=== PATIENT | male | born 1975 ===

== ENCOUNTER 2018-06-01 12:03 | Inpatient (IN) ==
[2018-06-01] MEDS ORDERED: GLUCAGON 1 MG VIAL IM PRN (16:29)
[2018-06-01] MEDS: INSULIN REGULAR 100 UNIT/ML SUBCUT SCH ×2 (16:50→21:37)
[2018-06-01] MEDS: SODIUM CHLORIDE 0.9% 1,000 ML IV SCH (16:53)
[2018-06-01] MEDS: DOCUSATE SODIUM 100 MG CAPSULE PO PRN (16:53)
[2018-06-01] MEDS: ONDANSETRON 4 MG/2 ML VIAL IV PRN (16:55)
[2018-06-01] MEDS ORDERED: metFORMIN 500 MG TABLET PO SCH (17:00)
[2018-06-01] MEDS ORDERED: VANCOMYCIN INJ 2,500 MG in SODIUM CHLORIDE 0.9% 500 ML IV ONE (18:00)
[2018-06-01 18:06] LABS: Basophils % 0.2 % (0.0-0.8); Eosinophils % 31.1 % (0.00-10.9); Hematocrit 32.6 VOL% (42.0-52.0); Hemoglobin 11.4 GM/DL (14.0-18.0); Immature Granulocytes % 2.1 %; Lymphocytes # 0.3 10*3/uL (1.4-4.0); Lymphocytes % 2.9 % (21.2-54.2); Mean Corpuscular Hemoglobin 34 PG (27-34); Mean Platelet Volume 11.3 FL (9.6-12.0); Monocytes # 0.6 10*3/uL (0.11-0.8); Monocytes % 5.6 % (1.7-12.7); Neutrophils # 5.7 10*3/uL (1.4-7.4); Neutrophils % 58.1 % (38.7-73.9); Red Blood Count 3.36 MC/CUMM (3.8-5.5); White Blood Count 9.8 T/CUMM (4-12)
[2018-06-01 18:09] LABS: Platelet Count 32 T/CUMM (130-400)
[2018-06-01 18:24] LABS: Calcium 7.2 MG/DL (8.5-10.1); Osmolality,Calculated 271.2 MOS/KG (273-304); Potassium 3.9 MMOL/L (3.5-5.1)
[2018-06-01] MEDS: DEXTROSE 50% 25 GM/50 ML VIAL IV PRN (19:10)
[2018-06-01 19:56] LABS: Band Neutrophils 3 % (0-10); Eosinophils 17 % (0-10); Lymphocytes 4 % (20-55); Platelet Estimate Decreased; Segmented Neutrophils 72 % (50-85); Total Cells Counted 100
[2018-06-01] MEDS ORDERED: ENOXAPARIN 30 MG/0.3 ML SYRINGE SUBCUT SCH (21:00)
[2018-06-01] MEDS: MORPHINE 4 MG/1 ML VIAL IV PRN (21:33)
[2018-06-01] MEDS: PIPERACILLIN/TAZOBACTAM 3,375 MG in SODIUM CHLORIDE 0.9% 100 ML IV SCH (22:42)
[2018-06-02] MEDS: DEXTROSE 50% 25 GM/50 ML VIAL IV PRN (00:23)
[2018-06-02 04:43] LABS: Apearance,Urine CLOUDY (Clear); Bacteria,Urine Occasional /HPF (Few); Bilirubin,Urine Negative (Negative); Blood, Urine Moderate mg/dL (Negative); Glucose,Urine (UA) Negative (Negative); Ketones,Urine Negative (Negative); Mucus,Urine Occasional /LPF (Occasional); Nitrite,Urine Negative (Negative); Protein,Urine Negative; RBC,Urine 22 /HPF (0-4); Squamous Epithelial Cell,Urine Occasional /HPF (0-10); Urine Color Amber (Yellow); Urine Specific Gravity 1.018 (1.001-1.035); Urine Urobilinogen < 2.0 EU/DL (0.2-1.0); WBC,Urine 1 /HPF (0-6)
[2018-06-02 05:15] LABS: Basophils % 0.4 % (0.0-0.8); Eosinophils % 0.4 % (0.00-10.9); Hematocrit 33.4 VOL% (42.0-52.0); Hemoglobin 11.5 GM/DL (14.0-18.0); Immature Granulocytes % 2.6 %; Immature Granulocytes Absolute 0.25 #; Lymphocytes # 0.4 10*3/uL (1.4-4.0); Lymphocytes % 4.1 % (21.2-54.2); Mean Corpuscular HGB Conc 34.4 GM/DL (32-36); Mean Corpuscular Hemoglobin 34 PG (27-34); Mean Corpuscular Volume 98.5 FL (87-102); Mean Platelet Volume 12.1 FL (9.6-12.0); Monocytes # 0.7 10*3/uL (0.11-0.8); Monocytes % 7.1 % (1.7-12.7); Neutrophils # 8.1 10*3/uL (1.4-7.4); Neutrophils % 85.4 % (38.7-73.9); Red Blood Count 3.39 MC/CUMM (3.8-5.5); Red Cell Distribution Width 14.3 % (9.3-17.3); White Blood Count 9.5 T/CUMM (4-12)
[2018-06-02 05:26] LABS: Platelet Count 35 T/CUMM (130-400)
[2018-06-02 05:39] LABS: Band Neutrophils 12 % (0-10); Hypochromasia 1+; Lymphocytes 6 % (20-55); Platelet Estimate Decreased; Segmented Neutrophils 74 % (50-85); Total Cells Counted 100
[2018-06-02 05:42] LABS: Calcium 7.2 MG/DL (8.5-10.1); Osmolality,Calculated 279.1 MOS/KG (273-304)
[2018-06-02 05:59] LABS: Albumin 1.9 G/DL (3.4-5.0); Bilirubin,Direct 2.82 MG/DL (0.0-0.20); Bilirubin,Indirect 1.5 MG/DL (0.0-1.0); Bilirubin,Total 4.3 MG/DL (0.2-1.0); Total Protein 6.4 G/DL (6.4-8.3)
[2018-06-02] MEDS: PIPERACILLIN/TAZOBACTAM 3,375 MG in SODIUM CHLORIDE 0.9% 100 ML IV SCH (06:12)
[2018-06-02] MEDS: INSULIN REGULAR 100 UNIT/ML SUBCUT SCH ×2 (07:30→12:31)
[2018-06-02] MEDS: MORPHINE 4 MG/1 ML VIAL IV PRN ×2 (08:33→17:07)
[2018-06-02] MEDS ORDERED: hydroCHLOROthiazide 25 MG TABLET PO SCH (09:00)
[2018-06-02] MEDS ORDERED: PANTOPRAZOLE 40 MG TABLET PO SCH (09:00)
[2018-06-02] MEDS ORDERED: LISINOPRIL 10 MG TABLET PO SCH (09:00)
[2018-06-02] MEDS ORDERED: VANCOMYCIN INJ 1,250 MG in SODIUM CHLORIDE 0.9% 250 ML IV ONE (12:00)
[2018-06-02] MEDS: MEROPENEM 500 MG in SYRINGE 1 EACH IV SCH ×2 (13:20→17:00)
[2018-06-02] MEDS: DEXTROSE 5% NACL 0.9% 1,000 ML IV SCH (13:20)
[2018-06-02] MEDS: SODIUM CHLORIDE 0.9% 1,000 ML IV SCH (14:25)
[2018-06-02] MEDS: ONDANSETRON 4 MG/2 ML VIAL IV PRN (17:10)
[2018-06-02] MEDS ORDERED: VANCOMYCIN INJ 2,500 MG in SODIUM CHLORIDE 0.9% 500 ML IV PRN (18:00)
[2018-06-03] MEDS: MEROPENEM 500 MG in SYRINGE 1 EACH IV SCH ×3 (01:09→17:15)
[2018-06-03] MEDS: DEXTROSE 5% NACL 0.9% 1,000 ML IV SCH ×2 (04:32→21:53)
[2018-06-03 08:22] LABS: Basophils # 0.1 10*3/uL (0.0-0.2); Basophils % 0.7 % (0.0-0.8); Eosinophils # 0.2 10*3/uL (0.0-0.87); Eosinophils % 1.9 % (0.00-10.9); Hematocrit 29.8 VOL% (42.0-52.0); Hemoglobin 10.5 GM/DL (14.0-18.0); Lymphocytes # 0.7 10*3/uL (1.4-4.0); Lymphocytes % 7.3 % (21.2-54.2); Mean Corpuscular HGB Conc 35.2 GM/DL (32-36); Mean Corpuscular Hemoglobin 35 PG (27-34); Mean Platelet Volume 11.6 FL (9.6-12.0); Monocytes # 0.9 10*3/uL (0.11-0.8); Monocytes % 8.9 % (1.7-12.7); Neutrophils % 80.2 % (38.7-73.9); Platelet Count 48 T/CUMM (130-400); Red Blood Count 3.04 MC/CUMM (3.8-5.5); Red Cell Distribution Width 14.4 % (9.3-17.3)
[2018-06-03 08:34] LABS: Osmolality,Calculated 274.8 MOS/KG (273-304); Potassium 3.7 MMOL/L (3.5-5.1)
[2018-06-03 08:43] LABS: Band Neutrophils 41 % (0-10); Eosinophils 1 % (0-10); Lymphocytes 2 % (20-55); Metamyelocytes 1 %; Platelet Estimate Decreased; Segmented Neutrophils 45 % (50-85); Total Cells Counted 100
[2018-06-03 08:44] LABS: Anisocytosis 1+
[2018-06-03] MEDS: DOCUSATE SODIUM 100 MG CAPSULE PO PRN (09:15)
[2018-06-03] MEDS: MORPHINE 4 MG/1 ML VIAL IV PRN (12:21)
[2018-06-03] MEDS: ONDANSETRON 4 MG/2 ML VIAL IV PRN (12:22)
[2018-06-04] MEDS: BENZOCAINE/MENTHOL LOZENGE 18/BOX PO PRN (00:52)
[2018-06-04] MEDS: MEROPENEM 500 MG in SYRINGE 1 EACH IV SCH ×4 (00:53→20:18)
[2018-06-04 06:37] LABS: Calcium 7.3 MG/DL (8.5-10.1); Osmolality,Calculated 282.2 MOS/KG (273-304); Potassium 3.5 MMOL/L (3.5-5.1)
[2018-06-04] MEDS: CLINDAMYCIN INJ 900 MG in PREMIX 1 EACH IV SCH ×2 (12:24→21:18)
[2018-06-04] MEDS: DEXTROSE 5% NACL 0.9% 1,000 ML IV SCH (14:02)
[2018-06-05] MEDS: MEROPENEM 500 MG in SYRINGE 1 EACH IV SCH ×4 (03:16→20:57)
[2018-06-05] MEDS: CLINDAMYCIN INJ 900 MG in PREMIX 1 EACH IV SCH ×3 (05:42→21:55)
[2018-06-05 05:56] LABS: Basophils # 0.1 10*3/uL (0.0-0.2); Basophils % 0.6 % (0.0-0.8); Eosinophils # 0.1 10*3/uL (0.0-0.87); Eosinophils % 0.4 % (0.00-10.9); Hemoglobin 11.2 GM/DL (14.0-18.0); Immature Granulocytes % 8.2 %; Immature Granulocytes Absolute 1.78 #; Lymphocytes # 1.1 10*3/uL (1.4-4.0); Lymphocytes % 4.8 % (21.2-54.2); Mean Corpuscular Hemoglobin 34 PG (27-34); Mean Corpuscular Volume 96.7 FL (87-102); Mean Platelet Volume 10.6 FL (9.6-12.0); Monocytes # 2.5 10*3/uL (0.11-0.8); Monocytes % 11.7 % (1.7-12.7); NRBC # 0.04 10*3/uL; Neutrophils # 16.1 10*3/uL (1.4-7.4); Neutrophils % 74.3 % (38.7-73.9); Red Blood Count 3.31 MC/CUMM (3.8-5.5); Red Cell Distribution Width 14.3 % (9.3-17.3)
[2018-06-05 05:58] LABS: Platelet Count 65 T/CUMM (130-400); White Blood Count 21.7 T/CUMM (4-12)
[2018-06-05 06:07] LABS: Calcium 7.6 MG/DL (8.5-10.1); Osmolality,Calculated 276.7 MOS/KG (273-304); Potassium 3.5 MMOL/L (3.5-5.1)
[2018-06-05 06:32] LABS: Lymphocytes 3 % (20-55); Platelet Estimate Decreased; Polychromasia Few; Segmented Neutrophils 96 % (50-85); Total Cells Counted 100
[2018-06-05] MEDS: MORPHINE 4 MG/1 ML VIAL IV PRN (07:52)
[2018-06-05] MEDS: DEXTROSE 5% NACL 0.9% 1,000 ML IV SCH (14:00)
[2018-06-05] MEDS: DOCUSATE SODIUM 100 MG CAPSULE PO PRN (21:02)
[2018-06-06] MEDS: MEROPENEM 500 MG in SYRINGE 1 EACH IV SCH ×4 (03:08→20:54)
[2018-06-06] MEDS: CLINDAMYCIN INJ 900 MG in PREMIX 1 EACH IV SCH ×3 (04:10→20:57)
[2018-06-06] MEDS: BENZOCAINE/MENTHOL LOZENGE 18/BOX PO PRN (04:13)
[2018-06-06] MEDS: PHENOL 1.4% THROAT SPRAY 177 ML BOTTLE PO PRN ×2 (04:15→07:39)
[2018-06-06 05:46] LABS: Basophils # 0.1 10*3/uL (0.0-0.2); Basophils % 0.5 % (0.0-0.8); Eosinophils # 0.1 10*3/uL (0.0-0.87); Eosinophils % 0.5 % (0.00-10.9); Hemoglobin 9.6 GM/DL (14.0-18.0); Immature Granulocytes % 8.6 %; Immature Granulocytes Absolute 1.81 #; Lymphocytes # 0.8 10*3/uL (1.4-4.0); Lymphocytes % 3.8 % (21.2-54.2); Mean Corpuscular HGB Conc 35.6 GM/DL (32-36); Mean Corpuscular Hemoglobin 34 PG (27-34); Mean Corpuscular Volume 96.4 FL (87-102); Mean Platelet Volume 10.5 FL (9.6-12.0); Monocytes # 2.1 10*3/uL (0.11-0.8); Monocytes % 10.1 % (1.7-12.7); NRBC # 0.03 10*3/uL; Neutrophils # 16.1 10*3/uL (1.4-7.4); Neutrophils % 76.5 % (38.7-73.9); Red Cell Distribution Width 14.3 % (9.3-17.3)
[2018-06-06 05:50] LABS: Platelet Count 53 T/CUMM (130-400)
[2018-06-06 06:05] LABS: Calcium 7.4 MG/DL (8.5-10.1); Osmolality,Calculated 275.7 MOS/KG (273-304); Potassium 3.4 MMOL/L (3.5-5.1)
[2018-06-06 06:28] LABS: Band Neutrophils 3 % (0-10); Hypochromasia 1+; Lymphocytes 3 % (20-55); Metamyelocytes 2 %; Segmented Neutrophils 83 % (50-85); Total Cells Counted 100
[2018-06-06 06:29] LABS: Macrocytosis Slight
[2018-06-06 06:30] LABS: Platelet Estimate Decreased
[2018-06-06] MEDS: DEXTROSE 5% NACL 0.9% 1,000 ML IV SCH (07:35)
[2018-06-06] MEDS: MORPHINE 4 MG/1 ML VIAL IV PRN (10:58)
[2018-06-06 11:43] LABS: Albumin 1.6 G/DL (3.4-5.0); Bilirubin,Direct 7.94 MG/DL (0.0-0.20); Bilirubin,Indirect 2.9 MG/DL (0.0-1.0); Bilirubin,Total 10.8 MG/DL (0.2-1.0); Total Protein 5.9 G/DL (6.4-8.3)
[2018-06-06 22:35] LABS: INR 1.3; PT Patient Result 13.9 SECS
[2018-06-06 23:37] LABS: Hepatitis A Ab IgM Quant 0.24 Index; Hepatitis A Ab IgM Result Negative (Negative); Hepatitis B Core IgM Quant 0.07 Index; Hepatitis B Core IgM Result Negative (Negative); Hepatitis B Surface Ag Quant < 0.10 Index; Hepatitis B Surface Ag Result Negative (Negative); Hepatitis C Virus Ab Quant 0.12 Index; Hepatitis C Virus Ab Result Negative (Negative)
[2018-06-07] MEDS: MEROPENEM 500 MG in SYRINGE 1 EACH IV SCH ×4 (01:32→22:03)
[2018-06-07] MEDS: CLINDAMYCIN INJ 900 MG in PREMIX 1 EACH IV SCH ×3 (05:20→22:03)
[2018-06-07 05:21] LABS: Basophils # 0.1 10*3/uL (0.0-0.2); Basophils % 0.5 % (0.0-0.8); Eosinophils # 0.1 10*3/uL (0.0-0.87); Eosinophils % 0.4 % (0.00-10.9); Hematocrit 29.5 VOL% (42.0-52.0); Hemoglobin 10.5 GM/DL (14.0-18.0); Immature Granulocytes % 8.3 %; Immature Granulocytes Absolute 1.77 #; Lymphocytes # 1.1 10*3/uL (1.4-4.0); Mean Corpuscular HGB Conc 35.6 GM/DL (32-36); Mean Corpuscular Hemoglobin 34 PG (27-34); Mean Corpuscular Volume 95.2 FL (87-102); Mean Platelet Volume 10.5 FL (9.6-12.0); Monocytes # 1.5 10*3/uL (0.11-0.8); NRBC # 0.03 10*3/uL; Neutrophils # 16.8 10*3/uL (1.4-7.4); Neutrophils % 78.8 % (38.7-73.9); Red Cell Distribution Width 14.5 % (9.3-17.3); White Blood Count 21.4 T/CUMM (4-12)
[2018-06-07 05:22] LABS: Platelet Count 41 T/CUMM (130-400)
[2018-06-07 05:38] LABS: Albumin 1.5 G/DL (3.4-5.0); Bilirubin,Direct 7.61 MG/DL (0.0-0.20); Bilirubin,Indirect 3.8 MG/DL (0.0-1.0); Bilirubin,Total 11.4 MG/DL (0.2-1.0); Calcium 7.3 MG/DL (8.5-10.1); Osmolality,Calculated 271.8 MOS/KG (273-304); Potassium 3.8 MMOL/L (3.5-5.1); Total Protein 6.3 G/DL (6.4-8.3)
[2018-06-07 06:13] LABS: Band Neutrophils 1 % (0-10); Eosinophils 1 % (0-10); Hypochromasia 1+; Lymphocytes 3 % (20-55); Platelet Estimate Decreased; Segmented Neutrophils 90 % (50-85); Total Cells Counted 100
[2018-06-07 06:14] LABS: Macrocytosis Slight
[2018-06-07] MEDS: MORPHINE 4 MG/1 ML VIAL IV PRN (12:57)
[2018-06-07] MEDS: DEXTROSE 5% NACL 0.9% 1,000 ML IV SCH ×2 (16:59→22:04)
[2018-06-07] MEDS: oxyCODONE ER 10 MG TABLET PO SCH ×2 (17:02→22:02)
[2018-06-08] MEDS: MEROPENEM 500 MG in SYRINGE 1 EACH IV SCH ×4 (02:24→21:18)
[2018-06-08] MEDS: CLINDAMYCIN INJ 900 MG in PREMIX 1 EACH IV SCH ×3 (04:42→21:18)
[2018-06-08 06:08] LABS: Basophils # 0.1 10*3/uL (0.0-0.2); Basophils % 0.3 % (0.0-0.8); Eosinophils # 0.1 10*3/uL (0.0-0.87); Eosinophils % 0.4 % (0.00-10.9); Hematocrit 28.8 VOL% (42.0-52.0); Hemoglobin 10.1 GM/DL (14.0-18.0); Immature Granulocytes % 7.6 %; Immature Granulocytes Absolute 1.54 #; Mean Corpuscular HGB Conc 35.1 GM/DL (32-36); Mean Corpuscular Hemoglobin 33 PG (27-34); Mean Corpuscular Volume 95.4 FL (87-102); Mean Platelet Volume 9.9 FL (9.6-12.0); Monocytes # 1.5 10*3/uL (0.11-0.8); Monocytes % 7.3 % (1.7-12.7); Neutrophils # 16.1 10*3/uL (1.4-7.4); Neutrophils % 79.4 % (38.7-73.9); Red Blood Count 3.02 MC/CUMM (3.8-5.5); Red Cell Distribution Width 14.6 % (9.3-17.3); White Blood Count 20.3 T/CUMM (4-12)
[2018-06-08 06:10] LABS: Platelet Count 63 T/CUMM (130-400)
[2018-06-08 06:34] LABS: Albumin 1.5 G/DL (3.4-5.0); Calcium 7.3 MG/DL (8.5-10.1); Osmolality,Calculated 271.8 MOS/KG (273-304); Potassium 3.4 MMOL/L (3.5-5.1); Total Protein 6.3 G/DL (6.4-8.3)
[2018-06-08 06:37] LABS: Lymphocytes 2 % (20-55); Platelet Estimate Decreased; Segmented Neutrophils 94 % (50-85); Total Cells Counted 100
[2018-06-08 06:38] LABS: Polychromasia Few
[2018-06-08] MEDS: oxyCODONE ER 10 MG TABLET PO SCH ×2 (08:31→21:19)
[2018-06-08] MEDS: MORPHINE 4 MG/1 ML VIAL IV PRN (11:05)
[2018-06-08] MEDS: ONDANSETRON 4 MG/2 ML VIAL IV PRN (11:09)
[2018-06-09] MEDS: MEROPENEM 500 MG in SYRINGE 1 EACH IV SCH ×4 (01:03→21:32)
[2018-06-09] MEDS: MORPHINE 4 MG/1 ML VIAL IV PRN (01:10)
[2018-06-09] MEDS: DEXTROSE 5% NACL 0.9% 1,000 ML IV SCH ×2 (01:12→23:45)
[2018-06-09] MEDS: CLINDAMYCIN INJ 900 MG in PREMIX 1 EACH IV SCH ×3 (05:00→21:32)
[2018-06-09 07:41] LABS: Basophils # 0.1 10*3/uL (0.0-0.2); Basophils % 0.5 % (0.0-0.8); Eosinophils # 0.1 10*3/uL (0.0-0.87); Eosinophils % 0.4 % (0.00-10.9); Hematocrit 28.7 VOL% (42.0-52.0); Hemoglobin 10.2 GM/DL (14.0-18.0); Immature Granulocytes % 7.2 %; Immature Granulocytes Absolute 1.21 #; Lymphocytes # 0.8 10*3/uL (1.4-4.0); Mean Corpuscular HGB Conc 35.5 GM/DL (32-36); Mean Corpuscular Hemoglobin 34 PG (27-34); Mean Corpuscular Volume 94.7 FL (87-102); Mean Platelet Volume 9.7 FL (9.6-12.0); Monocytes # 1.2 10*3/uL (0.11-0.8); Monocytes % 7.2 % (1.7-12.7); Neutrophils # 13.3 10*3/uL (1.4-7.4); Neutrophils % 79.7 % (38.7-73.9); Platelet Count 70 T/CUMM (130-400); Red Blood Count 3.03 MC/CUMM (3.8-5.5); Red Cell Distribution Width 14.9 % (9.3-17.3)
[2018-06-09 07:45] LABS: White Blood Count 16.7 T/CUMM (4-12)
[2018-06-09 07:59] LABS: Band Neutrophils 2 % (0-10); Eosinophils 1 % (0-10); Hypochromasia 1+; Lymphocytes 4 % (20-55); Platelet Estimate Decreased; Segmented Neutrophils 87 % (50-85); Total Cells Counted 100
[2018-06-09 08:00] LABS: Macrocytosis Slight; Polychromasia Few
[2018-06-09 08:01] LABS: Albumin 1.5 G/DL (3.4-5.0); Bilirubin,Total 11.6 MG/DL (0.2-1.0); Calcium 7.4 MG/DL (8.5-10.1); Osmolality,Calculated 272.7 MOS/KG (273-304); Potassium 3.6 MMOL/L (3.5-5.1); Total Protein 6.4 G/DL (6.4-8.3)
[2018-06-09] MEDS: oxyCODONE ER 10 MG TABLET PO SCH ×2 (08:11→21:33)
[2018-06-09] MEDS: SILVER SULFADIAZINE 1% CREAM 25 GM TUBE TOP SCH (13:01)
[2018-06-10] MEDS: MEROPENEM 500 MG in SYRINGE 1 EACH IV SCH ×4 (02:24→21:02)
[2018-06-10] MEDS: CLINDAMYCIN INJ 900 MG in PREMIX 1 EACH IV SCH (05:01)
[2018-06-10 05:22] LABS: Basophils % 0.2 % (0.0-0.8); Eosinophils # 0.1 10*3/uL (0.0-0.87); Eosinophils % 0.4 % (0.00-10.9); Hematocrit 26.5 VOL% (42.0-52.0); Hemoglobin 9.5 GM/DL (14.0-18.0); Immature Granulocytes % 5.8 %; Immature Granulocytes Absolute 0.93 #; Lymphocytes # 0.8 10*3/uL (1.4-4.0); Lymphocytes % 5.2 % (21.2-54.2); Mean Corpuscular HGB Conc 35.8 GM/DL (32-36); Mean Corpuscular Hemoglobin 34 PG (27-34); Mean Corpuscular Volume 94.6 FL (87-102); Mean Platelet Volume 9.7 FL (9.6-12.0); Monocytes # 1.2 10*3/uL (0.11-0.8); Monocytes % 7.4 % (1.7-12.7); Platelet Count 72 T/CUMM (130-400); Red Cell Distribution Width 15.1 % (9.3-17.3); White Blood Count 16.1 T/CUMM (4-12)
[2018-06-10 05:41] LABS: Calcium 7.2 MG/DL (8.5-10.1); Osmolality,Calculated 267.8 MOS/KG (273-304); Potassium 3.6 MMOL/L (3.5-5.1)
[2018-06-10 05:47] LABS: Band Neutrophils 5 % (0-10); Hypochromasia 1+; Lymphocytes 1 % (20-55); Myelocytes 2 %; Platelet Estimate Decreased; Segmented Neutrophils 87 % (50-85); Total Cells Counted 100
[2018-06-10 05:48] LABS: Macrocytosis Slight; Ovalocytes Slight
[2018-06-10] MEDS: oxyCODONE ER 10 MG TABLET PO SCH ×2 (08:35→21:02)
[2018-06-10] MEDS: SILVER SULFADIAZINE 1% CREAM 25 GM TUBE TOP SCH (08:36)
[2018-06-10] MEDS: MORPHINE 4 MG/1 ML VIAL IV PRN (11:38)
[2018-06-11] MEDS: DEXTROSE 5% NACL 0.9% 1,000 ML IV SCH (01:33)
[2018-06-11] MEDS: MEROPENEM 500 MG in SYRINGE 1 EACH IV SCH ×3 (01:34→14:34)
[2018-06-11] MEDS: MORPHINE 4 MG/1 ML VIAL IV PRN (09:11)
[2018-06-11] MEDS: oxyCODONE ER 10 MG TABLET PO SCH (09:40)
[2018-06-11] MEDS: SILVER SULFADIAZINE 1% CREAM 25 GM TUBE TOP SCH (09:41)
[2018-06-11] MEDS ORDERED: DEXTROSE 50% 25 GM/50 ML VIAL IV PRN (11:38)
[2018-06-11] MEDS ORDERED: GLUCAGON 1 MG VIAL IM PRN (11:38)
[2018-06-11 12:35] VITALS: BP 133/57
[2018-06-11] MEDS ORDERED: INSULIN REGULAR 100 UNIT/ML SUBCUT SCH (16:30)
== END 2018-06-11 15:18 | DRG 603 ==
LOC: N.5E 14:07 → SUATTDRO 14:07
PROVIDERS: ADMIT Internal Medicine; ATTEND Internal Medicine